=== PATIENT | female | born 1975 ===

== ENCOUNTER 2022-09-17 06:09 | Emergency (ER) | payer BC, OTHER ==
--- NOTE | 2022-09-17 07:18 | RAD REPORT ---
EXAM DESCRIPTION: CT - Head Brain Wo Cont - 09/17/2022 6:58 am CLINICAL HISTORY: Headache COMPARISON: <Comparisons> TECHNIQUE: Axial 5 mm thick images of the head were obtained without IV contrast. All CT scans are performed using dose optimization technique as appropriate and may include automated exposure control or mA/KV adjustment according to patient size. FINDINGS: No intracranial hemorrhage, mass, edema or shift of mid-line structures. No acute infarcti on changes seen. No abnormal extra-axial fluid collections. Ventricles are normal. Mastoid air cells are clear. Ethmoid air cell and maxillary sinus mucosal thickening present. There a re no air-fluid levels. No acute bony findings. IMPRESSION: Negative non-contrast CT head examination for intracranial abnormality. Maxillary sinus and ethmoid air cell mucosal thickening without air-fluid level.
[2022-09-17 08:07] LABS: Absolute Lymphocytes (CBC) 1.8 K/uL (0.7-4.9); Hematocrit 40.8 % (36.0-45.0); Lymphocytes % 23.9 % (15.3-44.8); MCV 86.3 fL (80-100); MPV 8.1 fL (7.6-11.3); RBC Red Blood Cell Count 4.73 M/uL (3.86-4.86)
[2022-09-17 08:19] LABS: Potassium 4.2 mmol/L (3.5-5.1)
--- NOTE | 2022-09-17 08:36 | RAD REPORT ---
EXAM DESCRIPTION: CT - Head angio - 09/17/2022 8:12 am CLINICAL HISTORY: post-coital headache TECHNIQUE: During dynamic enhancement using nonionic IV contrast, axial 1 millimeter thick images of the head were obtained. Sagittal and axial reconstruction images were generated using MIP technique and reviewed. All CT scans are performed using dose optimization technique as appropriate and may include automated exposure control or mA/KV adjustment according to patient size. COMPARISON: CT head same date FINDINGS: No aneurysm or vascular malformation identified. Major venous sinuses are patent. No stenosis, named branch occlusion, vasculitis or other significant vascular finding identifiable. A nterior communicating artery is present a normal variant. IMPRESSION: Negative CT angio head examination.
--- NOTE | 2022-09-17 08:43 | ER ---
Nurse's Notes [facility] Name: Alma Rosa Yen Age: 46 yrs Sex: Female : 1975 Arrival Date: 09/17/2022 Time: 06:15 Bed 17 Private MD: Elias Marshall Diagnosis: Headache Presentation: 09/17 06:28 Chief complaint: Patient states: I developed a migraine during orgasm and thought I was jb4 going to . I took 2 advil about an hour ago. My pain is now a 4/10. Coronavirus screen: At this time, the client does not indicate any symptoms associated with coronavirus-19. Ebola Screen: No symptoms or risks identified at this time. Initial Sepsis Screen: Does the patient meet any 2 criteria? No. Patient's initial sepsis screen is negative. Does the patient have a suspected source of infection? No. Patient's initial sepsis screen is negative. Risk Assessment: Do you want to hurt yourself or someone else? Patient reports no desire to harm self or others. Onset of symptoms was September 17, 2022. Transition of care: patient was not received from another setting of care. 06:28 Method Of Arrival: Ambulatory jb4 06:28 Acuity: NANCI 4 jb4 Historical: - Allergies: 06:30 No Known Allergies; jb4 - PMHx: 06:30 Fibroids; jb4 - PSHx: 06:30 Embolization of Fibroids; jb4 - Immunization history:: Adult Immunizations up to date. - Social history:: Smoking status: Patient denies any tobacco usage or history of. Patient uses alcohol, 2-3 times per week.. - Family history:: not pertinent. - Hospitalizations: : No recent hospitalization is reported. Screenin:31 [facility] ED Fall Risk Assessment (Adult) History of falling in the last 3 months, jb4 including since admission No falls in past 3 months (0 pts) Confusion or Disorientation No (0 pts) Intoxicated or Sedated No (0 pts) Impaired Gait No (0 pts) Mobility Assist Device Used No (0 pt) Altered Elimination No (0 pt) Score/Fall Risk Level 0 - 2 = Low Risk Oriented to surroundings, Maintained a safe environment. Abuse screen: Denies threats or abuse. Nutritional screening: No deficits noted. Tuberculosis screening: No symptoms or risk factors identified. Assessment: 06:31 General: Appears in no apparent distress. comfortable, Behavior is calm, cooperative, jb4 appropriate for age. Pain: Complains of pain in Headache. Pain does not radiate. Pain currently is 4 out of 10 on a pain scale. Quality of pain is described as aching. Neuro: Level of Consciousness is awake, alert, obeys commands, Oriented to person, place, time, situation. Cardiovascular: Patient's skin is warm and dry. Respiratory: Airway is patent Respiratory effort is even, unlabored, Respiratory pattern is regular, symmetrical. GI: No signs and/or symptoms were reported involving the gastrointestinal system. : No signs and/or symptoms were reported regarding the genitourinary system. EENT: No signs and/or symptoms were reported regarding the EENT system. Derm: Skin is intact, Skin is pink, warm \T\ dry. Musculoskeletal: Circulation, motion, and sensation intact. Range of motion: intact in all extremities. Vital Signs: 06:28 BP 120 / 88; Pulse 85; Resp 16; Temp 98.4; Pulse Ox 97% on R/A; Weight 97.52 kg (R); jb4 Height 5 ft. 9 in. (175.26 cm) (R); Pain 4/10; 06:28 Body Mass Index 31.75 (97.52 kg, 175.26 cm) jb4 [place] Coma Score: 08:40 Eye Response: spontaneous(4). Verbal Response: oriented(5). Motor Response: obeys rn commands(6). Total: 15. ED Course: 06:15 Patient arrived in ED. es 06:15 Elias Marshall MD is Private Physician. es 06:28 Jeremy Marie, RN is Primary Nurse. jb4 06:30 Triage completed. jb4 06:30 Arm band placed on right wrist. jb4 07:00 CT Head Brain wo Cont In Process Unspecified. EDMS 07:03 Laurent Horowitz MD is Attending Physician. rn 07:56 Protime (+inr) Sent. hb 07:56 Ptt, Activated Sent. hb 07:56 Basic Metabolic Panel Sent. hb 07:56 CBC with Diff Sent. hb 08:13 CT Head Angio In Process Unspecified. EDMS 08:42 Tiburcio Palomo MD is Referral Physician. rn Administered Medications: No medications were administered Medication: 06:31 VIS not applicable for this client. jb4 Outcome: 08:42 Discharge ordered by . rn 09:22 Patient left the ED. Signatures: Dispatcher [employer] Maggi Siddiqui Roman, MD MD rn Baxter, Heather, RN RN Jeremy Marie RN RN jb4
--- NOTE | 2022-09-17 08:43 | EDPHYS ---
Physician Documentation [facility] Name: Alma Rosa Yen Age: 46 yrs Sex: Female : 1975 Arrival Date: 09/17/2022 Time: 06:15 Bed 17 Private MD: Elias Marshall ED Physician Laurent Horowitz HPI: 09/17 08:40 This 46 yrs old Female presents to ER via Ambulatory with complaints of Headache. rn 08:40 The patient complains of pain to the top of head and forehead. The patient describes rn the headache as throbbing. Onset: The symptoms/episode began/occurred this morning. Associated signs and symptoms: Pertinent positives: This patient does not have any pertinent positive signs or symptoms associated with a headache. Pertinent negatives: altered mental status, fever, neck stiffness, vision changes, vision loss, vertigo. Severity of symptoms: At its worst the pain was moderate, in the emergency department the pain has improved. The symptoms are alleviated by advil the symptoms are aggravated by nothing. The patient has experienced similar episodes in the past. The patient has not recently seen a physician. Pt reports hx of headaches, this one began during orgasm, sudden onset, improved now after 2 advil. No syncope. No focal neurological complaints. . Historical: - Allergies: 06:30 No Known Allergies; jb4 - PMHx: 06:30 Fibroids; jb4 - PSHx: 06:30 Embolization of Fibroids; jb4 - Immunization history:: Adult Immunizations up to date. - Social history:: Smoking status: Patient denies any tobacco usage or history of. Patient uses alcohol, 2-3 times per week.. - Family history:: not pertinent. - Hospitalizations: : No recent hospitalization is reported. ROS: 08:40 Constitutional: Negative for fever, chills, and weight loss, Eyes: Negative for injury, rn pain, redness, and discharge, Neck: Negative for injury, pain, and swelling, Cardiovascular: Negative for chest pain, palpitations, and edema, Respiratory: Negative for shortness of breath, cough, wheezing, and pleuritic chest pain, Abdomen/GI: Negative for abdominal pain, nausea, vomiting, diarrhea, and constipation, Back: Negative for injury and pain, MS/Extremity: Negative for injury and deformity, Skin: Negative for injury, rash, and discoloration, Neuro: Negative for weakness, numbness, tingling, and seizure. Exam: 08:40 Constitutional: This is a well developed, well nourished patient who is awake, alert, rn and in no acute distress. Head/Face: Normocephalic, atraumatic. Eyes: Pupils equal round and reactive to light, extra-ocular motions intact. Lids and lashes normal. Conjunctiva and sclera are non-icteric and not injected. Cornea within normal limits. Periorbital areas with no swelling, redness, or edema. Neck: Trachea midline, no thyromegaly or masses palpated, and no cervical lymphadenopathy. Supple, full range of motion without nuchal rigidity, or vertebral point tenderness. No Meningismus. Cardiovascular: Regular rate and rhythm. No pulse deficits. Respiratory: No increased work of breathing, no retractions or nasal flaring. Skin: Warm, dry with normal turgor. Normal color with no rashes, no lesions, and no evidence of cellulitis. MS/ Extremity: Pulses equal, no cyanosis. Neurovascular intact. Full, normal range of motion. Equal circumference. Neuro: Awake and alert, GCS 15, oriented to person, place, time, and situation. Cranial nerves II-XII grossly intact. Motor strength 5/5 in all extremities. Sensory grossly intact. Cerebellar exam normal. Vital Signs: 06:28 BP 120 / 88; Pulse 85; Resp 16; Temp 98.4; Pulse Ox 97% on R/A; Weight 97.52 kg (R); jb4 Height 5 ft. 9 in. (175.26 cm) (R); Pain 4/10; 06:28 Body Mass Index 31.75 (97.52 kg, 175.26 cm) jb4 [place] Coma Score: 08:40 Eye Response: spontaneous(4). Verbal Response: oriented(5). Motor Response: obeys rn commands(6). Total: 15. MDM: 07:03 Patient medically screened. rn 08:40 Differential diagnosis: hypertensive headache, migraine, subarachnoid bleed, tension rn headache, vasomotor headache. Data reviewed: vital signs, nurses notes, lab test result(s), radiologic studies, CT scan, and as a result, I will discharge patient. Counseling: I had a detailed discussion with the patient and/or guardian regarding: the historical points, exam findings, and any diagnostic results supporting the discharge/admit diagnosis, lab results, radiology results, the need for outpatient follow up, to return to the emergency department if symptoms worsen or persist or if there are any questions or concerns that arise at home. Response to treatment: the patient's symptoms have markedly improved after treatment, and as a result, I will discharge patient. Special discussion: I discussed with the patient/guardian in detail that at this point there is no indication for admission to the hospital. It is understood, however, that if the symptoms persist or worsen the patient needs to return immediately for re-evaluation. Based on the history and exam findings, there is no indication for further emergent testing or inpatient evaluation. I discussed with the patient/guardian the need to see the neurologist for further evaluation of the symptoms. 09/17 07:13 Order name: CBC with Diff; Complete Time: 08:39 rn 09/17 07:13 Order name: Basic Metabolic Panel; Complete Time: 08:39 rn 09/17 06:35 Order name: CT Head Brain wo Cont; Complete Time: 08:39 sp3 09/17 07:13 Order name: Protime (+inr); Complete Time: 08:39 rn 09/17 07:13 Order name: Ptt, Activated; Complete Time: 08:39 rn 09/17 07:13 Order name: CT Head Angio; Complete Time: 08:39 rn 09/17 07:13 Order name: IV Start; Complete Time: 07:56 rn Administered Medications: No medications were administered Disposition Summary: 09/17/22 08:42 Discharge Ordered Location: Home rn Problem: new rn Symptoms: have improved rn Condition: Stable rn Diagnosis - Headache rn Followup: rn - With: Tiburcio Palomo MD - When: As needed - Reason: Recheck today's complaints, Re-evaluation by your physician Discharge Instructions: - Discharge Summary Sheet rn - General Headache Without Cause rn Forms: - Medication Reconciliation Form rn - Thank You Letter rn - Antibiotic blow torch burner - Prescription Opioid Use rn Signatures: Dispatcher [employer] Laurent Blunt MD MD rn Bryson, James, RN RN jb4
[2022-09-17 09:28] VITALS: BP 120/88; TEMP 98.4; O2SAT 97
== END 2022-09-17 09:22 | disposition home or self-care (01) ==
LOC: ER 06:09
DX: R51.9 Headache, unspecified (principal)
CPT/HCPCS: 85025; 80048; 36415; 85610; 85730; 70450; 70496; 99283; Q9967